=== PATIENT | male | born 1985 | race Two or more races ===

== ENCOUNTER 2022-03-23 00:15 | Emergency (ER) | payer OTHER ==
[2022-03-23 01:06] VITALS: BP 181/112; PULSE 85; RESP 20; TEMP 98.2; BMI 56.5
[2022-03-23] MEDS ORDERED: ACETAMINOPHEN 325 MG TABLET (FP) PO ONE (01:56)
[2022-03-23] MEDS ORDERED: ACETAMINOPHEN 325 MG TABLET (FP) ONE (01:58)
== END 2022-03-23 03:08 | disposition home or self-care (01) ==
LOC: JER 00:15
DX: S09.90XA Unspecified injury of head, initial encounter (principal); I10 Essential (primary) hypertension; W18.2XXA Fall in (into) shower or empty bathtub, initial encounter
CPT/HCPCS: 70450-TC; 72125-TC; 99284-25